=== PATIENT | female | born 1950 | race Two or more races ===

== ENCOUNTER 2017-08-10 17:19 | Emergency (ER) | payer MEDICARE, OTHER ==
[~2017-08-10] VITALS: Ht 167.6 cm; Wt 81.6 kg
[2017-08-10] MEDS ORDERED: HYDROcodone/Acetamin 7.5/325 tab ORAL ONE (17:45)
--- NOTE | 2017-08-10 18:19 | Emergency Room Report ---
History of Present Illness General Chief Complaint: Lower Extremity Injury Source: EMS (Sophie Deleon) Present Illness HPI 67-year-old female presents to the emergency department complaining of 9 out of 10 in severity left knee pain since this morning. Patient states that she was dropping her granddaughter off at school when she fell outside on the sidewalk. Patient states she has been having pain when she attempts to bear weight and pain with movement of the left knee. Patient denies hip pain neck or back pain. Patient did not hit her head she denies loss of consciousness. Daughter is also present whom attest that patient does not have past medical history and is not currently taking medications. Patient denies dizziness, chest pain or feeling lightheaded prior to fall. Patient can't recall the entire event. Denies numbness tingling or loss of sensation or gross motor movements of the extremities, incontinence of bowel or bladder. Denies CP, Palpitations, AMS, Changes in Vision, Sensation, paresthesias, or a sudden severe headache. (Sophie Deleon) Allergies: Coded Allergies: No Known Allergies (Unverified , 08/10/17) Patient History Past Medical History: see triage record Past Surgical History: none Pertinent Family History: none Reviewed Nursing Documentation: PMH: Agreed, PSxH: Agreed (Sophie Deleon) Nursing Documentation-PMH Past Medical History: No History, Except For Hx Hypertension: Yes Hx Diabetes: Yes (Sophie Deleon) Review of Systems All Other Systems: negative except mentioned in HPI (Sophie Deleon) Physical Exam Vital Signs Date Time Temp Pulse Resp B/P (MAP) Pulse Ox O2 Delivery O2 Flow Rate FiO2 08/10/17 17:17 99.2 80 20 202/110 99 Room Air 99.1 Sp02 EP Interpretation: reviewed, normal General Appearance: no apparent distress, alert, GCS 15, non-toxic Head: normocephalic, atraumatic ENT: hearing grossly normal, normal voice Neck: full range of motion Respiratory: lungs clear, normal breath sounds, no wheezing, speaking full sentences Cardiovascular #1: regular rate, rhythm, no edema, normal capillary refill Musculoskeletal: back normal, gait/station normal - Patient is ambulatory with obvious compensation of the left side., normal range of motion, non-tender, other - Tenderness to palpation to the anterior, lateral and medial left knee. No increased laxity , negative anterior and posterior drawer sign. There is abrasion noted to the anterior portion of the knee with mild swelling no erythema., tender Neurologic: alert, oriented x3, responsive, motor strength/tone normal, sensory intact, speech normal, grossly normal Psychiatric: judgement/insight normal Skin: normal color, no rash, warm/dry, well hydrated, abrasions - Abdomen abrasion to the anterior left knee-superficial not bleeding (Sophie Deleon) Medical Decision Making PA Attestation Dr. Escobar is my supervising Physician whom patient management has been discussed with. (Sophie Deleon) Diagnostic Impression: Primary Impression: Contusion of knee, left Qualified Codes: S80.02XA - Contusion of left knee, initial encounter Additional Impressions: Left knee sprain Qualified Codes: S83.92XA - Sprain of unspecified site of left knee, initial encounter Abrasion ER Course Pt. presents to the ED c/o [ ] Ddx considered but are not limited to Fracture, dislocation, contusion, Sprain/ Strain/Spasm Vital signs: elevated BP, pt. is afebrile H&PE are most consistent with musculoskeletal injury will perform imaging to r/ o fractures/dislocations. ORDERS: - X-ray Left Knee 3 views - negative for fx, Dislocation, or significant soft tissue injury, per preliminary read in ED, and signed by GINETTE Deleon , my supervising physician has reviewed, and agrees with my interpretation. ED INTERVENTIONS: - [place] PO --Patient is provided with cane and instructed on it's use -She didn't experience episode of vomiting she denies nausea she denies upset stomach. -- She is treated with some Zofran upon reevaluation patient states she feels much better and is ready to leave and is attempting to walk out the door with her daughter. She continues to be neurologically intact and in no acute distress. DISCHARGE: At this time pt. is stable for d/c to home. Will provide printed patient care instructions, and any necessary prescriptions. Care plan and follow up instructions have been discussed with the patient prior to discharge. (Sophie Deleon) ER Course patella fx on XR from Dr Valdez patient and daughter told she needs to come back to be placed in knee immobilzer and crutches Daughter states she will bring patient back. (Salbador Elizalde M.D.) Other X-Ray Diagnostic Results Other X-Ray Diagnostic Results : X-Ray ordered: LEft Knee # of Views/Limited Vs Complete: 3 View Indication: Pain EP Interpretation: Yes PA Xray: Interpretation reviewed, by supervising MD, and agrees with findings. Interpretation: no dislocation, no soft tissue swelling, no fractures Impression: No acute disease Electronically Signed by: Sophie Deleon PA-C (Sophie Deleon) Last Vital Signs Date Time Temp Pulse Resp B/P (MAP) Pulse Ox O2 Delivery O2 Flow Rate FiO2 08/10/17 17:17 99.2 80 20 202/110 99 Room Air 99.1 (Sophie Deleon) Disposition: HOME, SELF-CARE Condition: Stable Scripts Bacitracin/Polymyxin B Sulfate (BACITRACIN-POLYMYXIN OINTMENT) 28.35 Gm Oint...g. 1 APPLIC TP BID, #28.3 GM Prov: Sophie Deleon 08/10/17 Acetaminophen* (TYLENOL EXTRA STRENGTH*) 500 Mg Tablet 500 MG ORAL Q6H, #20 TAB 0 Refills Prov: Sophie Deleon 08/10/17 Patient Instructions: Contusion, [id number], Knee Sprain Additional Instructions: Take medications as directed. Follow up with a Primary Care Provider in 3-5 days, even if your symptoms have resolved. --Please review list of primary care clinics, if you do not already have a primary care provider Return sooner to ED if new symptoms occur, or current symptoms become worse. - Please note that this Emergency Department Report was dictated using [employer] dough mixer technology software, occasionally this can lead to erroneous entry secondary to interpretation by the dictation equipment. Sophie Deleon Aug 10, 2017 18:19 Salbador Elizalde M.D. Aug 11, 2017 09:28
[2017-08-10] MEDS ORDERED: BACITRACIN-P28.35 GM TP (19:26)
[2017-08-10] MEDS ORDERED: TYLENOL EXTRA500 MG ORAL (19:26)
[2017-08-10 19:47] VITALS: BP 137/83
[2017-08-10 19:50] VITALS: BP 137/83
--- NOTE | 2017-08-11 13:13 | Diagnostic Imaging Report ---
Indication: Pain Technique: 3 views of the left knee Comparison: None Findings: There is a nondisplaced fracture of the patella visible on the lateral view. There is a large suprapatellar effusion and prepatellar soft tissue swelling. No femoral, tibial, or fibular fracture demonstrated. Impression: Findings suspicious for nondisplaced patellar fracture Positive for joint effusion Findings discussed by phone with Dr. Elizalde in the emergency room at the time of interpretation
== END 2017-08-10 19:50 | disposition home or self-care (01) ==
LOC: EDBD 17:19 → EMR 17:45
DX: S82.002A Unspecified fracture of left patella, initial encounter for closed fracture (principal); S80.212A Abrasion, left knee, initial encounter; S30.811A Abrasion of abdominal wall, initial encounter; W19.XXXA Unspecified fall, initial encounter; Y92.480 Sidewalk as the place of occurrence of the external cause; E11.9 Type 2 diabetes mellitus without complications; I10 Essential (primary) hypertension
CPT/HCPCS: 99284

== ENCOUNTER 2017-08-11 11:07 | Emergency (ER) | payer MEDICARE, OTHER ==
[~2017-08-11] VITALS: Ht 152.4 cm; Wt 59.0 kg
[~2017-08-11 11:07] MED LIST: BACITRACIN-P28.35 GM TP; TYLENOL EXTRA500 MG ORAL
[2017-08-11 11:45] VITALS: BP 153/82
--- NOTE | 2017-08-11 12:03 | Emergency Room Report ---
History of Present Illness General Chief Complaint: Multiple Trauma/Fall Source: Patient Present Illness HPI 67-year-old female left knee pain. States that she fell, was called back as patient has a patella fracture found on x-ray. No other complaints Allergies: Coded Allergies: No Known Allergies (Unverified , 08/10/17) Patient History Past Medical History: see triage record Past Surgical History: none Pertinent Family History: none Reviewed Nursing Documentation: PMH: Agreed, PSxH: Agreed Nursing Documentation-PMH Past Medical History: No History, Except For Hx Hypertension: Yes Hx Diabetes: Yes Review of Systems All Other Systems: negative except mentioned in HPI Physical Exam Vital Signs Date Time Temp Pulse Resp B/P (MAP) Pulse Ox O2 Delivery O2 Flow Rate FiO2 08/11/17 11:10 98.2 85 18 153/82 97 Room Air 98.2 Sp02 EP Interpretation: reviewed, normal General Appearance: normal inspection, well appearing, no apparent distress, alert, GCS 15, non-toxic Head: normocephalic, atraumatic Eyes: bilateral eye normal inspection, bilateral eye PERRL, bilateral eye EOMI ENT: normal ENT inspection, normal pharynx, normal voice, moist mucus membranes Neck: normal inspection, full range of motion, supple Respiratory: normal inspection, lungs clear, normal breath sounds, no respiratory distress, no retraction, no wheezing, speaking full sentences, chest symmetrical Cardiovascular #1: normal inspection, regular rate, rhythm, no edema, normal capillary refill Cardiovascular #2: 2+ radial (R), 2+ radial (L) Gastrointestinal: normal inspection, non tender, soft, non-distended, no guarding Musculoskeletal: other - Left knee tenderness palpation, limited range of motion secondary to pain, patient is limping with a cane Neurologic: normal inspection, alert, oriented x3, responsive, motor strength/ tone normal, sensory intact, normal gait, speech normal Psychiatric: normal inspection, judgement/insight normal, memory normal Skin: normal inspection, normal color, no rash, warm/dry, well hydrated, normal turgor Procedures Splinting Splinting : Consent: Verbal Location: L knee Pre-Made Type: knee immobilizer Pre-Proc Neuro Vasc Exam: normal Post-Proc Neuro Vasc Exam: normal Patient Tolerated: Well Complications: None Medical Decision Making Diagnostic Impression: Primary Impression: Patella fracture ER Course 67-year-old female, left knee pain, found to have patellar fracture on x-ray that was done yesterday DDX: Patella fracture Plan: Patient place a knee immobilizer and crutches ER course: Patient has remained stable during ED stay. Disposition: Patient is to be discharged to home. Patient is instructed to follow up with orthopedic surgery in one week Please note that this Emergency Department Report was dictated using [employer] technology software, occasionally this can lead to erroneous entry secondary to interpretation by the dictation equipment Last Vital Signs Date Time Temp Pulse Resp B/P (MAP) Pulse Ox O2 Delivery O2 Flow Rate FiO2 08/11/17 11:45 98.2 18 153/82 97 Room Air 98.2 08/11/17 11:10 85 Disposition: HOME, SELF-CARE Patient Instructions: Patellar Fracture, Adult Additional Instructions: PLEASE SEE AN ORTHOPEDIC DOCTOR IN 1 WEEK Salbador Elizalde M.D. Aug 11, 2017 12:03
[2017-08-11 12:19] VITALS: BP 153/82
== END 2017-08-11 12:22 | disposition home or self-care (01) ==
LOC: EMR 11:46
DX: S82.002A Unspecified fracture of left patella, initial encounter for closed fracture (principal); W19.XXXA Unspecified fall, initial encounter; Y92.9 Unspecified place or not applicable; I10 Essential (primary) hypertension; E11.9 Type 2 diabetes mellitus without complications
CPT/HCPCS: 99283